=== PATIENT | female | born 1995 | race Caucasian/White ===

== ENCOUNTER → 2018-02-16 | Outpatient (CLI) | payer BC, OTHER | END | disposition home or self-care (01) | LOC: LABWHC1 16:28 | PROVIDERS: ATTEND Obstetrics & Gynecology | DX: N92.6 Irregular menstruation, unspecified (principal) | CPT/HCPCS: 36415; 84702 ==

== ENCOUNTER 2018-06-15 16:07 | Emergency (ER) | payer BC, OTHER ==
[2018-06-15 16:57] VITALS: BP 104/64; PULSE 76; RESP 18; TEMP 98.5
--- NOTE | 2018-06-15 17:12 | ED ---
ENT HPI - General Chief complaint: ENT Stated complaint: ear pain Time Seen by Provider: 06/15/18 16:58 Source: patient, RN notes reviewed Mode of arrival: ambulatory Limitations: no limitations - History of Present Illness Initial comments: This is a 23yo female with hx of multiple caries and poor dentition with multiple extractions who presents today for CC of right sided tooth pain x4 days. Pt states that she has had a dental carry in tooth #3 and has been experiencing sensitivity to hot and cold foods for a few months. However for the past 3-4 days she has been experiencing pain in the tooth that radiates to up towards the right hear, however she denies ear pain. Pt has had difficulty sleeping due to the pain and thought she better present to the emergency department. Pt had not tried any medication for the pain. Pt denies fever, chills, facial swelling, difficulty swallowing or breathing, or rashes. Remainder ROS (-). - Related Data Previous Rx's Medication Instructions Recorded Ibuprofen [Motrin] 800 mg PO Q8H PRN 7 Days #21 tab 06/15/18 Penicillin V Potassium [Pen Vee K] 500 mg PO QID 7 Days #28 tablet 06/15/18 Allergies Allergy/AdvReac Type Severity Reaction Status Date / Time codeine Allergy Unknown Verified 06/15/18 16:57 Childhood Review of Systems ROS Statement: Those systems with pertinent positive or pertinent negative responses have been documented in the HPI. ROS Other: All systems not noted in ROS Statement are negative. Constitutional: Denies: fever, weakness, night sweats Eyes: Denies: eye pain, vision change ENT: Reports: dental pain. Denies: ear pain, throat pain, hearing loss Respiratory: Denies: cough, dyspnea, wheezes, hemoptysis Cardiovascular: Denies: chest pain, palpitations, orthopnea Endocrine: Denies: fatigue Gastrointestinal: Denies: abdominal pain, nausea, vomiting, diarrhea, constipation Genitourinary: Denies: urgency, dysuria, frequency Musculoskeletal: Denies: back pain (no neck pain, or stiffness) Skin: Denies: rash, lesions Neurological: Denies: headache, weakness, numbness, paresthesias, confusion, abnormal gait, vertigo Past Medical History Past Medical History: No Reported History History of Any Multi-Drug Resistant Organisms: None Reported Past Surgical History: Appendectomy Past Psychological History: No Psychological Hx Reported Smoking Status: Current every day smoker Past Alcohol Use History: Occasional Past Drug Use History: None Reported General Exam Limitations: no limitations General appearance: alert, in no apparent distress Head exam: Present: atraumatic, normal inspection Eye exam: Present: normal appearance, PERRL, EOMI ENT exam: Present: mucous membranes moist Expanded Ear exam: Present: normal external inspection, other (TM in non erythematous, cone and light and mallelous present, no drainage, effusion or perfation noted b /l. EAC WNL b/l) Mouth exam: Present: normal external inspection, tongue normal, other (No masses below tongue, or facial swelling). Absent: drooling, trismus Teeth exam: Present: dental caries (of multiple teeth), dental tenderness # (3, tenderness to percussion with no palpable abscess). Absent: fractured tooth #, gingival enlargement Throat exam: normal inspection Neck exam: Present: normal inspection, full ROM (no nuchal rigidity or stiffness ). Absent: tenderness, lymphadenopathy Respiratory exam: Present: normal lung sounds bilaterally. Absent: respiratory distress, wheezes, rales, rhonchi, stridor Cardiovascular Exam: Present: regular rate, normal rhythm, normal heart sounds Neurological exam: Present: alert, oriented X3, CN II-XII intact (grossly), normal gait Psychiatric exam: Present: normal affect, normal mood Skin exam: Present: warm, dry, intact. Absent: rash, diaphoretic Course Vital Signs 06/15/18 16:54 Temperature 98.5 F Pulse Rate 76 Respiratory 18 Rate Blood Pressure 104/64 O2 Sat by Pulse 99 Oximetry Medical Decision Making - Medical Decision Making 23 yo female with CC of dental pain in tooth #3, no facial swelling or palpable abscess. No masses below tongue. No concern for Ludwigs angina or systemic spread of infection at this time. There is pain to percussion of tooth #3 concerning for periapical abscess. Pt was given RX for Pen VK, ibuprofen 800 for pain and oral surgery f/u for tooth extraction. Case discussed with Dr. Agarwal in detail. Pt agreed with plan and was discharged in stable condition. Disposition Clinical Impression: Pain, dental Disposition: HOME SELF-CARE Condition: Good Instructions: Dental Abscess (ED) Additional Instructions: Please take medication as discussed. Please follow-up with your dentist or oral surgery in 1-2 days. Please return to the emergency department for new or worsening symptoms as discussed. Prescriptions: Ibuprofen [Motrin] 800 mg PO Q8H PRN 7 Days #21 tab PRN Reason: Pain Penicillin V Potassium [Pen Vee K] 500 mg PO QID 7 Days #28 tablet Is patient prescribed a controlled substance at d/c from ED?: No Referrals: Tadeo Benjamin DO [Primary Care Provider] - 1-2 days Tres Mireles DDS [STAFF PHYSICIAN] - 1-2 days Time of Disposition: 17:11
== END 2018-06-15 17:28 | disposition home or self-care (01) ==
LOC: EC 16:07
DX: K08.89 Other specified disorders of teeth and supporting structures (principal); K02.9 Dental caries, unspecified; F17.200 Nicotine dependence, unspecified, uncomplicated; Z88.5 Allergy status to narcotic agent
CPT/HCPCS: 99282

== ENCOUNTER 2018-11-29 12:19 | Emergency (ER) | payer BC, OTHER ==
[2018-11-29 12:30] VITALS: BP 126/83; PULSE 88; RESP 18; TEMP 98.1
--- NOTE | 2018-11-29 12:43 | ED ---
Skin/Abscess/FB HPI - General Chief complaint: Skin/Abscess/Foreign Body Stated complaint: RASH ON BOTH ARMS Time Seen by Provider: 11/29/18 12:33 Source: patient, RN notes reviewed Mode of arrival: ambulatory Limitations: no limitations - History of Present Illness Initial comments: This 23-year-old female sent emergency Department chief complaint of bilateral arm rash. Patient states started a few days ago and is very itchy. Patient states that she has tried Benadryl, calamine lotion and cortisone. Patient believes that she came in contact with something is causing the rash. Denies any new products. Patient denies any difficulty breathing, swallowing. Patient had no recent URI symptoms no fever, sore throat. Patient states the rash has not spread any other place at this time. - Related Data Home Medications Medication Instructions Recorded Confirmed diphenhydrAMINE [Benadryl] 50 mg PO Q8H PRN 11/29/18 11/29/18 Previous Rx's Medication Instructions Recorded predniSONE 50 mg PO DAILY #5 tab 11/29/18 Allergies Allergy/AdvReac Type Severity Reaction Status Date / Time codeine Allergy Unknown Verified 11/29/18 12:29 Childhood Review of Systems ROS Statement: Those systems with pertinent positive or pertinent negative responses have been documented in the HPI. ROS Other: All systems not noted in ROS Statement are negative. Past Medical History Past Medical History: No Reported History History of Any Multi-Drug Resistant Organisms: None Reported Past Surgical History: Appendectomy Past Psychological History: No Psychological Hx Reported Smoking Status: Current every day smoker Past Alcohol Use History: Occasional Past Drug Use History: None Reported General Exam Limitations: no limitations General appearance: alert, in no apparent distress Head exam: Present: atraumatic, normocephalic, normal inspection Eye exam: Present: normal appearance, PERRL, EOMI. Absent: scleral icterus, conjunctival injection, periorbital swelling ENT exam: Present: normal exam, normal oropharynx, mucous membranes moist Neck exam: Present: normal inspection. Absent: tenderness, meningismus, lymphadenopathy Respiratory exam: Present: normal lung sounds bilaterally. Absent: respiratory distress, wheezes, rales, rhonchi, stridor Cardiovascular Exam: Present: regular rate, normal rhythm, normal heart sounds. Absent: systolic murmur, diastolic murmur, rubs, gallop, clicks Skin exam: Present: warm, dry, intact, normal color, rash (Bilateral upper extremities there is a fine papular macular rash slight erythema, excoriations noted) Course Vital Signs 11/29/18 12:26 Temperature 98.1 F Pulse Rate 88 Respiratory 18 Rate Blood Pressure 126/83 O2 Sat by Pulse 99 Oximetry Medical Decision Making - Medical Decision Making 23-year-old female presented for rash. Patient appears to have contact dermatitis. The rash is located on the exposed areas of her arms. There is no other areas the rash. Patient was treated with oral steroids and Benadryl. Patient may use [id number] Caladryl. Return parameters were discussed. Disposition Clinical Impression: Contact dermatitis Disposition: HOME SELF-CARE Condition: Stable Instructions: Contact Dermatitis (ED) Additional Instructions: Continue Benadryl [id number] as directed and Caladryl lotion. Please return to the Emergency Department if symptoms worsen or any other concerns. Prescriptions: predniSONE 50 mg PO DAILY #5 tab Is patient prescribed a controlled substance at d/c from ED?: No Referrals: Tadeo Benjamin DO [Primary Care Provider] - 1-2 days Time of Disposition: 12:43
== END 2018-11-29 13:00 | disposition home or self-care (01) ==
LOC: EC 12:19
DX: L25.9 Unspecified contact dermatitis, unspecified cause (principal); F17.200 Nicotine dependence, unspecified, uncomplicated; Z88.5 Allergy status to narcotic agent
CPT/HCPCS: 99282

== ENCOUNTER 2019-07-31 04:59 | Emergency (ER) | payer BC, OTHER ==
[2019-07-31 05:07] VITALS: BP 120/63; PULSE 90; RESP 20; TEMP 97.8
--- NOTE | 2019-07-31 05:17 | ED ---
Female Urogenital HPI - General Chief complaint: Vaginal Bleeding Stated complaint: 13 Wks Preg, Cramping Time Seen by Provider: 07/31/19 05:16 Source: patient Mode of arrival: ambulatory Limitations: no limitations - History of Present Illness Initial comments: Jessica is a female currently 13 weeks with a single intrauterine confirmed on outpatient ultrasound. Patient presents the ER today for evaluation of mild abdominal cramping and noticed some spotting today. Patient reports that she was last sexually active about 2 weeks ago, she did see her OB earlier this week and had a bedside ultrasound and was able to hear the baby's heartbeat. Patient reports that she is scheduled to have an appointment at the end of this month for gender identification. Patient reports that during the night she had some cramping that woke her couple times from sleep, she got up to use restroom and noted some dark spotting when she wiped herself and decided to come the ER for evaluation. Patient has no dysuria or hematuria. No concern for sexually transmitted infections and has been tested already in this and is negative. - Related Data Home Medications Medication Instructions Recorded Confirmed diphenhydrAMINE [Benadryl] 50 mg PO Q8H PRN 11/29/18 11/29/18 Previous Rx's Medication Instructions Recorded predniSONE 50 mg PO DAILY #5 tab 11/29/18 Allergies Allergy/AdvReac Type Severity Reaction Status Date / Time codeine Allergy Unknown Verified 07/31/19 05:07 Childhood Review of Systems ROS Statement: Those systems with pertinent positive or pertinent negative responses have been documented in the HPI. ROS Other: All systems not noted in ROS Statement are negative. Past Medical History Past Medical History: No Reported History History of Any Multi-Drug Resistant Organisms: None Reported Past Surgical History: Appendectomy Past Psychological History: No Psychological Hx Reported Smoking Status: Current every day smoker Past Alcohol Use History: Occasional Past Drug Use History: None Reported General Exam - General Exam Comments Initial Comments: Physical Exam GENERAL: Patient is well-developed and well-nourished. Patient is nontoxic and well- hydrated and is in no distress. HENT: Normocephalic, Atraumatic. EYES: PERRL, EOMI PULMONARY: Unlabored respirations. No audible rales rhonchi or wheezing was noted. CARDIOVASCULAR: There is a regular rate and rhythm without any murmurs gallops or rubs. ABDOMEN: Soft and nontender with normal bowel sounds. SKIN: Skin is clear with no lesions or rashes and otherwise unremarkable. : Normal external genitalia Cervical os is closed Scant dark blood in vaginal vault, NEUROLOGIC: Patient is alert and oriented x3. Moving all extremities spontaneously MUSCULOSKELETAL: Normal extremities with adequate strength and full range of motion. No lower extremity swelling or edema. No calf tenderness. PSYCHIATRIC: Normal psychiatric evaluation. Limitations: no limitations Course Vital Signs 07/31/19 05:05 Temperature 97.8 F Pulse Rate 90 Respiratory 20 Rate Blood Pressure 120/63 O2 Sat by Pulse 100 Oximetry Medical Decision Making - Medical Decision Making Patient was seen and evaluated, history is obtained from the patient Physical exam is unremarkable Bedside ultrasound was performed. Patient has a very active fetus with a heart rate in the 150s. A sign pelvic exam reveals some scant dark blood, no cervical motion tenderness, no discharge She reports that she is Rh+ and did not have a BM in her previous Supportive care, pelvic rest were discussed with the patient. patient is scheduled to see her OB in the next 2 weeks but I advised her to call for follow-up appointment sooner. All questions pertaining care were answered return parameters were discussed patient was discharged home in stable condition. - Lab Data Lab Results 07/31/19 Range/Units 05:26 Urine Color Yellow Urine Appearance Cloudy H (Clear) Urine pH 6.0 (5.0-8.0) Ur Specific [place] 1.016 (1.001-1.035) Urine Protein Negative (Negative) Urine Glucose (UA) Negative (Negative) Urine Ketones Negative (Negative) Urine Blood Moderate H (Negative) Urine Nitrite Negative (Negative) Urine Bilirubin Negative (Negative) Urine Urobilinogen <2.0 (<2.0) mg/dL Ur Leukocyte Esterase Large H (Negative) Urine RBC 2 (0-5) /hpf Urine WBC 10 H (0-5) /hpf Ur Squamous Epith Cells 11 H (0-4) /hpf Urine Bacteria Many H (None) /hpf Urine Mucus Occasional H (None) /hpf Disposition Clinical Impression: Vaginal bleeding Disposition: HOME SELF-CARE Condition: Stable Additional Instructions: Maintain pelvic rest until you follow 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
[2019-07-31 05:40] LABS: Appearance,Urine Cloudy (Clear); Bacteria,Urine Many /hpf; Bilirubin,Urine Negative (Negative); Blood,Urine Moderate (Negative); Color,Urine Yellow; Glucose,Urine (UA) Negative (Negative); Ketones,Urine Negative (Negative); Leukocyte Esterase,Urine Large (Negative); Mucus,Urine Occasional /hpf; Nitrite,Urine Negative (Negative); Protein,Urine Negative (Negative); RBC,Urine 2 /hpf (0-5); Specific Gravity,Urine 1.016 (1.001-1.035); Squamous Epithelial Cell,Urine 11 /hpf (0-4); Urobilinogen,Urine <2.0 mg/dL (<2.0); WBC,Urine 10 /hpf (0-5)
== END 2019-07-31 05:54 | disposition home or self-care (01) ==
LOC: EC 04:59
DX: O20.9 Hemorrhage in early pregnancy, unspecified (principal); O99.331 Smoking (tobacco) complicating pregnancy, first trimester; F17.200 Nicotine dependence, unspecified, uncomplicated; Z3A.13 13 weeks gestation of pregnancy; Z88.5 Allergy status to narcotic agent
CPT/HCPCS: 81001; 87086; 99283

== ENCOUNTER 2019-08-15 19:22 | Emergency (ER) | payer BC, OTHER ==
[2019-08-15 21:10] LABS: Appearance,Urine Cloudy (Clear); Bacteria,Urine Occasional /hpf; Bilirubin,Urine Negative (Negative); Blood,Urine Moderate (Negative); Color,Urine Yellow; Glucose,Urine (UA) Negative (Negative); Ketones,Urine Negative (Negative); Leukocyte Esterase,Urine Moderate (Negative); Mucus,Urine Occasional /hpf; Nitrite,Urine Negative (Negative); PH, Urine 5.5 (5.0-8.0); Protein,Urine Trace (Negative); RBC,Urine 2 /hpf (0-5); Specific Gravity,Urine 1.025 (1.001-1.035); Squamous Epithelial Cell,Urine 12 /hpf (0-4); Urobilinogen,Urine <2.0 mg/dL (<2.0); WBC,Urine 9 /hpf (0-5)
--- NOTE | 2019-08-15 21:37 | US ---
EXAMINATION TYPE: US OB >= 14 wk fetus DATE OF EXAM: 08/15/2019 COMPARISON: None CLINICAL HISTORY: cramping, spotting TECHNIQUE: Transabdominal (TA) GESTATIONAL AGE / DATING Physician Established: (15 weeks/6 days) EDC: 01/31/2020 Dates by Current Scan: (16 weeks/2 days) EDC: 01/28/2020 Beta HCG (if available): Not available at this time SURVEY IUP: Single PLACENTA: Posterior PREVIA: No Previa FRED: 10.4 cm Normal CERVICAL LENGTH (transabdominal: norm > 3.0cm): 3.2 cm BIOMETRY PRESENTATION: Vertex BPD: 3.2 cm 16 weeks / 0 days HC: 12.4 cm 16 weeks / 1 days AC: 11.0 cm 16 weeks / 6 days FL: 1.9 cm 15 weeks / 5 days ESTIMATED WEIGHT IN GRAMS: 151.2 grams ESTIMATED WEIGHT IN LBS/OZ: 0 lbs. 5 oz. WEIGHT PERCENTAGE BASED ON ESTABLISHED DATES: 70.4% HC/AC: 1.1 Normal FL/AC: 17.6 HEART RATE: 152 bpm RHYTHM: Normal Single live IUP measuring 16 weeks 2 days IMPRESSION: Ultrasound gestational age is 16 weeks and 2 days. No complicating process seen.
[2019-08-15] MEDS ORDERED: CEPHALEXIN 500MG STARTER PACK 4 CAP BTL PO STA (22:27)
--- NOTE | 2019-08-15 22:27 | ED ---
Female Urogenital HPI - General Chief complaint: Vaginal Bleeding Stated complaint: 16 wks ,spotting Time Seen by Provider: 08/15/19 19:59 Source: family Mode of arrival: ambulatory Limitations: no limitations - History of Present Illness Initial comments: 24-year-old female patient presents to the emergency department today for evaluation of lower abdominal pain and vaginal bleeding. Patient is 16 weeks currently. She is . Patient states that she did have similar symptoms about a week ago. States she had a normal ultrasound. Patient states that symptoms started again this morning. States she has been passing very light brown blood per vagina. States that she has had lower abdominal cramping especially over the left pelvic region. She denies any back pain, fever, or chills. Denies any hematuria, dysuria, urinary frequency, urinary urgency. She denies any injuries to the abdomen. She is unsure what her blood type is. States she did not receive RhoGAM with her first . Patient denies any recent rash, shortness breath, chest pain, nausea, vomiting, diarrhea, constipation, numbness, tingling, dizziness, weakness, headache, visual changes, or any other complaints. - Related Data Home Medications Medication Instructions Recorded Confirmed diphenhydrAMINE [Benadryl] 50 mg PO Q8H PRN 11/29/18 11/29/18 Previous Rx's Medication Instructions Recorded predniSONE 50 mg PO DAILY #5 tab 11/29/18 Cephalexin [Keflex] 500 mg PO Q6H #28 cap 08/15/19 Allergies Allergy/AdvReac Type Severity Reaction Status Date / Time codeine Allergy Unknown Verified 08/15/19 19:51 Childhood Review of Systems ROS Statement: Those systems with pertinent positive or pertinent negative responses have been documented in the HPI. ROS Other: All systems not noted in ROS Statement are negative. Past Medical History Past Medical History: No Reported History History of Any Multi-Drug Resistant Organisms: None Reported Past Surgical History: Appendectomy Past Psychological History: No Psychological Hx Reported Smoking Status: Current every day smoker Past Alcohol Use History: Occasional Past Drug Use History: None Reported General Exam Limitations: no limitations General appearance: alert, in no apparent distress, other (This is a well- developed, well-nourished adult female patient in no acute distress. Vital signs upon presentation are temperature 98.4F, pulse 100, respirations 20, blood pressure 123/66, pulse ox 97% on room air.) Eye exam: Present: normal appearance, PERRL, EOMI. Absent: scleral icterus, conjunctival injection, periorbital swelling ENT exam: Present: normal exam, normal oropharynx, mucous membranes moist Respiratory exam: Present: normal lung sounds bilaterally. Absent: respiratory distress, wheezes, rales, rhonchi, stridor Cardiovascular Exam: Present: regular rate, normal rhythm, normal heart sounds. Absent: systolic murmur, diastolic murmur, rubs, gallop, clicks GI/Abdominal exam: Present: soft, normal bowel sounds. Absent: distended, tenderness, guarding, rebound, rigid Neurological exam: Present: alert, oriented X3, CN II-XII intact Psychiatric exam: Present: normal affect, normal mood Skin exam: Present: warm, dry, intact, normal color. Absent: rash Course Vital Signs 08/15/19 08/15/19 19:48 23:10 Temperature 98.4 F 98.5 F Pulse Rate 100 77 Respiratory 20 16 Rate Blood Pressure 123/66 121/82 O2 Sat by Pulse 97 99 Oximetry Medical Decision Making - Medical Decision Making 24-year-old female patient presents to the emergency department today for evaluation of lower abdominal cramping and vaginal bleeding. Physical examination does reveal some mild lower abdominal discomfort. Urinalysis did show presence of white blood cells and bacteria. ABO/Rh was AB+. Ultrasound showed single live intrauterine gestation measuring 16 weeks beginning process seen. I did discuss findings and results with the patient. She'll be discharged to follow-up with the fabric worker leader for recheck in 1-2 days. She was started on antibiotics for bacteriuria. Return parameters were discussed in detail. She verbalizes understanding and agrees with this plan. - Lab Data Lab Results 08/15/19 08/15/19 Range/Units 20:56 20:56 Urine Color Yellow Urine Appearance Cloudy H (Clear) Urine pH 5.5 (5.0-8.0) Ur Specific [place] 1.025 (1.001-1.035) Urine Protein Trace H (Negative) Urine Glucose (UA) Negative (Negative) Urine Ketones Negative (Negative) Urine Blood Moderate H (Negative) Urine Nitrite Negative (Negative) Urine Bilirubin Negative (Negative) Urine Urobilinogen <2.0 (<2.0) mg/dL Ur Leukocyte Esterase Moderate H (Negative) Urine RBC 2 (0-5) /hpf Urine WBC 9 H (0-5) /hpf Ur Squamous Epith Cells 12 H (0-4) /hpf Urine Bacteria Occasional H (None) /hpf Urine Mucus Occasional H (None) /hpf Blood Type AB Positive Blood Type Recheck AB Pos Bld Type Recheck Status No - Radiology Data Radiology results: report reviewed Ultrasound of the fetus was obtained. Report was reviewed in its entirety. Impression by Dr. Amador shows ultrasound gestational age is 16 weeks and 2 days. getting process seen. Heart rate is 152. Disposition Clinical Impression: Vaginal bleeding during , Abdominal pain during Disposition: HOME SELF-CARE Condition: Good Instructions (If sedation given, give patient instructions): Abdominal Pain in (ED), Urinary Tract Infection in (ED) Additional Instructions: Complete antibiotic prescription in full. Follow up with OBGYN for recheck as soon as possible. Return to the emergency department for any new, worsening, or concerning symptoms. Prescriptions: Cephalexin [Keflex] 500 mg PO Q6H #28 cap Is patient prescribed a controlled substance at d/c from ED?: No Referrals: Tadeo Benjamin DO [Primary Care Provider] - 1-2 days Zayra Miller DO [Doctor of Osteopathic Medicine] - 1-2 days Time of Disposition: 22:27
[2019-08-15 23:16] VITALS: BP 121/82; PULSE 77; RESP 16; TEMP 98.5
== END 2019-08-15 23:10 | disposition home or self-care (01) ==
LOC: EC 19:22
DX: O20.9 Hemorrhage in early pregnancy, unspecified (principal); O26.892 Other specified pregnancy related conditions, second trimester; R10.30 Lower abdominal pain, unspecified; O99.332 Smoking (tobacco) complicating pregnancy, second trimester; F17.200 Nicotine dependence, unspecified, uncomplicated; Z3A.16 16 weeks gestation of pregnancy; Z88.5 Allergy status to narcotic agent
CPT/HCPCS: 76805; 81001; 86900; 86901; 99284

== ENCOUNTER 2019-11-15 11:17 | Outpatient (CLI) | payer BC, OTHER ==
[2019-11-15 12:24] VITALS: BP 121/69; PULSE 108; RESP 16; TEMP 97.1
--- NOTE | 2019-11-17 00:31 | P.MSEPDOC ---
Presenting Problems - Arrival Data Date of Arrival on Unit: 11/15/19 Time of Arrival on Unit: 11:17 Mode of Transport: Ambulatory - Complaint OB-Reason for Admission/Chief Complaint: Decreased Movement, Pain Medical History - Information : 2 Para: 1 Term: 1 : 0 Abortions: Spontaneous or Elective: 0 Number of Living Children: 1 - Gestational Age Gestational Age by ABRAM (wks/days): 29 Weeks and 0 Days - History Complications: Smoker Review of Systems - Review of Systems Constitutional: No problems Breast: No problems ENT: No problems Cardiovascular: No problems Respiratory: No problems Gastrointestinal: No problems Genitourinary: No problems Musculoskeletal: No problems Neurological: No problems Skin: No problems Vital Signs - Temperature Temperature: 97.1 F Temperature Source: Temporal Artery Scan - Pulse Right Sitting Brachial Pulse Rate: 108 Pulse Assessment Method: Automatic Cuff - Respirations Respiratory Rate: 16 Oxygen Delivery Method: Room Air O2 Sat by Pulse Oximetry: 99 - Blood Pressure Right Arm Sitting Blood Pressure: 121/69 Blood Pressure Mean: 86 Blood Pressure Source: Automatic Cuff Medical Screen Scoring (Pre) - Cervical Exam Dilation: Exam Deferred Effacement: Exam Deferred Membranes: Intact - Uterine Contractions Frequency: N/A Duration: N/A Intensity: N/A - Maternal Vital Signs Maternal Temperature: N/A Maternal Blood Pressure: N/A Signs of Preeclampsia: N/A - Maternal Trauma Maternal Trauma: N/A - Assessment - Baby A Baseline FHR: 135 Heart Rate - NICHD Category: Category I (Normal) = 0 NST: Reactive Position: N/A Station: N/A - Total Score - Baby A Total Score - Baby A: 0 - Total Score - Baby B Total Score - Baby B: 0 - Total Score - Baby C Total Score - Baby C: 0 - Level of Risk - Baby A Level of Risk - Baby A: Low (0-5) - Level of Risk - Baby B Level of Risk - Baby B: Low (0-5) - Level of Risk - Baby C Level of Risk - Baby C: Low (0-5) Physician Notification (Pre) - Physician Notified Physician Notified Date: 11/15/19 Physician Notified Time: 12:12 New Order Received: Yes - Notification Comment Comment: Aditya ricardo\Dr. Miller, advsd 11/23, c/o pulled muscle on top of abdomen after lifting pt at work and decreased movement since 11/14. Palpable area approx 1in in diameter 3 fingerbreaths above umbilicus, tender to touch. Reactive NST, pt feeling good movement. Pt needs note for lifting restrictions at work. Pt to pick note up from [facility], follow up as scheduled 11/19. Disposition - Disposition OB Disposition: Discharge to home, Written follow up instructions reviewed Discharge Date: 11/15/19 Discharge Time: 12:20 I agree with the RN Medical Screening Exam: Yes Risk & Benefit of care provided described in d/c instruction: Yes Diagnosis: DECREASED MOVEMENTS, THIRD TRIMESTER, FETUS 1
== END 2019-11-15 12:20 | disposition home or self-care (01) ==
LOC: FBPOP 11:17
PROVIDERS: ATTEND Obstetrics & Gynecology
DX: O36.8131 Decreased fetal movements, third trimester, fetus 1 (principal); O99.333 Smoking (tobacco) complicating pregnancy, third trimester; Z3A.29 29 weeks gestation of pregnancy
CPT/HCPCS: 59025; 99213

== ENCOUNTER 2020-01-07 16:02 | Outpatient (CLI) | payer BC, OTHER ==
[2020-01-07 16:34] VITALS: BP 132/74; PULSE 115; RESP 17; TEMP 97.5
== END 2020-01-07 17:00 | disposition home or self-care (01) ==
LOC: FBPOP 16:02
PROVIDERS: ATTEND Obstetrics & Gynecology
DX: O47.03 False labor before 37 completed weeks of gestation, third trimester (principal); O99.333 Smoking (tobacco) complicating pregnancy, third trimester; Z3A.36 36 weeks gestation of pregnancy
CPT/HCPCS: 59025; 84112; 99213

== ENCOUNTER 2020-01-24 05:59 | Inpatient (IN) | payer BC, OTHER ==
[2020-01-24] MEDS ORDERED: METHYLERGONOVINE 0.2 MG/ML 1 ML AMP IM PRN (06:17)
[2020-01-24] MEDS ORDERED: LIDOCAINE 0.5% (PF) 5 MG/ML (50 ML SDV) SQ PRN (06:17)
[2020-01-24] MEDS ORDERED: CARBOPROST TROMETHAMINE 250 MCG/ML 1 ML AMP IM PRN (06:17)
[2020-01-24] MEDS ORDERED: OXYTOCIN 10 UNIT/ML 1 ML VIAL IM PRN (06:17)
[2020-01-24] MEDS ORDERED: TERBUTALINE 1 MG/ML VIAL SQ PRN (06:17)
[2020-01-24] MEDS: LACTATED RINGERS 1,000 ML IV SCH ×2 (06:21→09:08)
[2020-01-24] MEDS ORDERED: OXYTOCIN 30 UNITS/500 ML NS 30 UNIT in SALINE 1 500ML.BAG IV SCH (06:30)
[2020-01-24 06:33] LABS: Basophils # (A) 0.1 k/uL (0-0.2); Basophils % (A) 0 %; Eosinophils # (A) 0.3 k/uL (0-0.7); Eosinophils % (A) 2 %; HCT 32.6 % (34.0-46.0); HGB 10.9 gm/dL (11.4-16.0); Lymphocytes # (A) 3.7 k/uL (1.0-4.8); Lymphocytes % (A) 27 %; MCH 30.3 pg (25.0-35.0); MCHC 33.4 g/dL (31.0-37.0); MCV 90.6 fL (80.0-100.0); Mean Platelet Volume 7.9; Monocytes % (A) 8 %; Neutrophils # (A) 8.1 k/uL (1.3-7.7); Neutrophils % (A) 59 %; Platelet Count 414 k/uL (150-450); WBC 13.6 k/uL (3.8-10.6)
--- NOTE | 2020-01-24 08:09 | P.HPOB ---
History of Present Illness H&P Date: 01/24/20 Chief Complaint: INduction of labor 24 year old presents at 39 weeks for induction of labor. Her cervix is 4/80/-1 and she is meeta every 2-4 minutes. heart tones 140 with moderate variability and reactive. Review of Systems All systems: negative Constitutional: Denies chills, Denies fever Eyes: denies blurred vision, denies pain Ears, nose, mouth and throat: Denies headache, Denies sore throat Cardiovascular: Denies chest pain, Denies shortness of breath Respiratory: Denies cough Gastrointestinal: Denies abdominal pain, Denies diarrhea, Denies nausea, Denies vomiting Genitourinary: Denies dysuria, Denies hematuria Musculoskeletal: Denies myalgias Integumentary: Denies pruritus, Denies rash Neurological: Denies numbness, Denies weakness Psychiatric: Denies anxiety, Denies depression Endocrine: Denies fatigue, Denies weight change Past Medical History Past Medical History: No Reported History History of Any Multi-Drug Resistant Organisms: None Reported Past Surgical History: Appendectomy Past Anesthesia/Blood Transfusion Reactions: No Reported Reaction Past Psychological History: No Psychological Hx Reported Smoking Status: Current every day smoker Past Alcohol Use History: Occasional Past Drug Use History: None Reported - Past Family History Father Additional Family Medical History / Comment(s): kidney disease Medications and Allergies Home Medications Medication Instructions Recorded Confirmed Type No Known Home Medications 01/24/20 01/24/20 History Allergies Allergy/AdvReac Type Severity Reaction Status Date / Time codeine Allergy Unknown Verified 01/24/20 06:17 Childhood Exam Osteopathic Statement: *. No significant issues noted on an osteopathic structural exam other than those noted in the History and Physical/Consult. Vital Signs Temp Pulse Resp BP Pulse Ox 01/24/20 06:23 97.2 F L 130 H 18 137/63 99 Intake and Output 01/23/20 01/24/20 01/24/20 22:59 06:59 14:59 Other: Weight 69.853 kg HEart: RRR Lungs: CTAB Abdomen: gravid, soft Extremeties: neg paras's Results Result Diagrams: 01/24/20 06:21 Abnormal Lab Results - Last 24 Hours (Table) 01/24/20 Range/Units 06:21 WBC 13.6 H (3.8-10.6) k/uL RBC 3.60 L (3.80-5.40) m/uL Hgb 10.9 L (11.4-16.0) gm/dL Hct 32.6 L (34.0-46.0) % Neutrophils # 8.1 H (1.3-7.7) k/uL Assessment and Plan (1) Normal labor Current Visit: Yes Status: Acute Code(s): O80 - ENCOUNTER FOR FULL-TERM UNCOMPLICATED DELIVERY; Z37.9 - OUTCOME OF DELIVERY, UNSPECIFIED SNOMED Code(s): 27509321 Plan: 1. induction of labor with amniotomy and pitocin 2. anticipate normal vaginal delivery
[2020-01-24] MEDS ORDERED: ROPIVACAINE 100 MG, fentaNYL (PF) 200 MCG in SODIUM CHLORIDE 0.9% 76 ML EPIDURAL ONE (09:02)
[2020-01-24] MEDS ORDERED: diphenhydrAMINE 25 MG CAP PO PRN (12:58)
[2020-01-24] MEDS ORDERED: IBUPROFEN 600 MG TAB PO PRN (12:58)
[2020-01-24] MEDS ORDERED: WITCH HAZEL 1 EACH MED..PAD TOPICAL PRN (12:58)
[2020-01-24] MEDS ORDERED: ACETAMINOPHEN TAB 325 MG TAB PO PRN (12:58)
[2020-01-24] MEDS ORDERED: BENZOCAINE/MENTHOL SPRAY 1 GM/SPRAY AEROSOL TOPICAL PRN (12:58)
[2020-01-24] MEDS ORDERED: LANOLIN CREAM 5 GM TUBE TOPICAL PRN (12:58)
[2020-01-24] MEDS ORDERED: diphenhydrAMINE 50 MG/ML 1 ML VIAL IVP PRN ×2 (12:58)
[2020-01-24] MEDS ORDERED: diphenhydrAMINE 50 MG CAP PO PRN (12:58)
[2020-01-24] MEDS ORDERED: SIMETHICONE 80 MG CHEWABLE PO PRN (12:58)
[2020-01-24] MEDS ORDERED: HYDROCORTISONE 2.5% RECTAL CREAM 30 GM TUBE RECTAL PRN (12:58)
[2020-01-24] MEDS ORDERED: ZOLPIDEM 5 MG TAB PO PRN (12:58)
[2020-01-24] MEDS ORDERED: OXYTOCIN 20 UNITS/1000 ML NS 1,000 ML IV SCH (13:00)
[2020-01-24 20:31] VITALS: RESP 16
[2020-01-24] MEDS: SENNOSIDES-DOCUSATE SODIUM 1 EACH TAB PO SCH (23:51)
--- NOTE | 2020-01-25 06:56 | P.PROBDLV ---
Vaginal Delivery Note - . Vaginal Delivery Note: 24-year-old presents at 39 weeks for induction of labor. Her cervix was 4 cm dilated, 80% effaced, -1 station. She is meeta every 2-4 minutes. heart tones 140 with moderate variability and reactive. Pitocin was started. Amniotomy was performed at 7:57 AM and clear fluid noted. When she was uncomfortable she did get an epidural. Her cervix was completely dilated at 11:20 AM. She pushed, delivered a viable female infant over intact perineum u nder epidural anesthesia at 11:41 AM. Head delivered OA, nuchal cord 1 easily reduced, anterior shoulder delivered gentle downward guidance followed by posterior shoulder and rest of body. Nose and mouth bulb suctioned, cord clamped and cut, placed on mother's abdomen. Apgars 9, 9, weight 7 pounds 9.5 ounces. Placenta delivered spontaneously, intact with three-vessel cord at 11:43 AM. Vagina, cervix, perineum inspected. First-degree midline laceration was repaired with 3-0 Vicryl. Estimated blood loss 200 mL. Mother and baby in stable condition.
[2020-01-25 07:15] LABS: Basophils # (A) 0.1 k/uL (0-0.2); Basophils % (A) 0 %; Eosinophils # (A) 0.5 k/uL (0-0.7); Eosinophils % (A) 3 %; HCT 30.5 % (34.0-46.0); HGB 10.2 gm/dL (11.4-16.0); Lymphocytes # (A) 3.4 k/uL (1.0-4.8); Lymphocytes % (A) 20 %; MCH 30.1 pg (25.0-35.0); MCHC 33.3 g/dL (31.0-37.0); MCV 90.5 fL (80.0-100.0); Mean Platelet Volume 7.5; Monocytes # (A) 1.3 k/uL (0-1.0); Monocytes % (A) 8 %; Neutrophils # (A) 11.5 k/uL (1.3-7.7); Neutrophils % (A) 67 %; Platelet Count 380 k/uL (150-450); RBC 3.37 m/uL (3.80-5.40); RDW 13.1 % (11.5-15.5); WBC 17.1 k/uL (3.8-10.6)
--- NOTE | 2020-01-25 08:44 | P.DS ---
Providers Date of admission: 01/24/20 05:59 Expected date of discharge: 01/25/20 Attending physician: Zayra Miller Primary care physician: Stated None - Discharge Diagnosis(es) (1) Normal labor Current Visit: Yes Status: Resolved (2) Normal vaginal delivery Current Visit: Yes Status: Acute Hospital Course: Patient presented for induction of labor. She underwent a normal vaginal delivery. Her course was uncomplicated. She'll be discharged home day #1 in stable condition to follow-up with me in 6 weeks. Plan - Discharge Summary New Discharge Prescriptions: New Ibuprofen [Motrin] 600 mg PO Q6HR PRN #30 tab PRN Reason: Mild Pain Or Fever >= 100.5 Discharge Medication List Ibuprofen [Motrin] 600 mg PO Q6HR PRN #30 tab 01/25/20 [Rx] Follow up Appointment(s)/Referral(s): Zayra Miller DO [Doctor of Osteopathic Medicine] - 6 Weeks Discharge Disposition: HOME SELF-CARE
[2020-01-25] MEDS: SENNOSIDES-DOCUSATE SODIUM 1 EACH TAB PO SCH ×2 (14:46→21:30)
[2020-01-26] MEDS: SENNOSIDES-DOCUSATE SODIUM 1 EACH TAB PO SCH (06:28)
[2020-01-26 07:37] VITALS: BP 115/80; PULSE 81; TEMP 98.5
== END 2020-01-26 14:45 | disposition home or self-care (01) | DRG 807 ==
LOC: 4FBP 05:59
PROVIDERS: ADMIT Obstetrics & Gynecology; ATTEND Obstetrics & Gynecology
PROC: 3E0R3BZ Introduction of Anesthetic Agent into Spinal Canal, Percutaneous Approach (ICD-10-PCS; principal; 2020-01-24)
PROC: 00HU33Z Insertion of Infusion Device into Spinal Canal, Percutaneous Approach (ICD-10-PCS; principal; 2020-01-24)
PROC: 10E0XZZ Delivery of Products of Conception, External Approach (ICD-10-PCS; principal; 2020-01-24)
PROC: 0HQ9XZZ Repair Perineum Skin, External Approach (ICD-10-PCS; principal; 2020-01-24)
DX: O69.81X0 Labor and delivery complicated by cord around neck, without compression, not applicable or unspecified (principal); Z37.0 Single live birth; O70.0 First degree perineal laceration during delivery; O99.334 Smoking (tobacco) complicating childbirth; F17.210 Nicotine dependence, cigarettes, uncomplicated; Z3A.39 39 weeks gestation of pregnancy; Z90.49 Acquired absence of other specified parts of digestive tract; Z88.5 Allergy status to narcotic agent
CPT/HCPCS: 85025; 86850; 86900; 86901

== ENCOUNTER 2021-02-26 14:49 | Emergency (ER) | payer BC, OTHER ==
[2021-02-26 15:55] VITALS: RESP 18; TEMP 97.4
[2021-02-26] MEDS ORDERED: predniSONE 20 MG TAB PO STA (18:34)
[2021-02-26] MEDS ORDERED: ACETAMINOPHEN TAB 500 MG TAB PO STA (18:34)
--- NOTE | 2021-02-26 18:41 | ED ---
Skin/Abscess/FB HPI - General Chief complaint: Skin/Abscess/Foreign Body Stated complaint: Bug bite Time Seen by Provider: 02/26/21 17:56 Source: patient Mode of arrival: ambulatory Limitations: no limitations - History of Present Illness Initial comments: This 25-year-old female presents complaining of some left hand pain, swelling, and erythema. This started yesterday. She feels as though she was bit by an insect. She apparently has had similar presentations in the past and relates that she is very susceptible to swelling after an insect bite. She complains of mild pain. She denies any actual fever. She is left-handed. No other complaints or modifying factors. - Related Data Previous Rx's Medication Instructions Recorded Ibuprofen [Motrin] 600 mg PO Q6HR PRN #30 tab 01/25/20 Sulfamethox-Tmp 800-160Mg [Bactrim 1 tab PO Q12HR #20 tab 02/26/21 DS 800-160 mg] predniSONE [Deltasone] 20 mg PO BID #6 tab 02/26/21 Allergies Allergy/AdvReac Type Severity Reaction Status Date / Time codeine Allergy Unknown Verified 02/26/21 15:52 Childhood Review of Systems ROS Statement: Those systems with pertinent positive or pertinent negative responses have been documented in the HPI. ROS Other: All systems not noted in ROS Statement are negative. Past Medical History Past Medical History: No Reported History History of Any Multi-Drug Resistant Organisms: None Reported Past Surgical History: Appendectomy Past Anesthesia/Blood Transfusion Reactions: No Reported Reaction Past Psychological History: No Psychological Hx Reported Smoking Status: Current every day smoker Past Alcohol Use History: Rare Past Drug Use History: None Reported - Past Family History Father Additional Family Medical History / Comment(s): kidney disease General Exam Limitations: no limitations Extremities exam: Present: full ROM Psychiatric exam: Present: normal affect, normal mood Skin exam: Present: other (There is some moderate erythema and slight swelling noted to the dorsal aspect of the left hand between the third and fourth digits just proximal to the MCP joint. No fluctuance identified.) Course Vital Signs 02/26/21 15:53 Temperature 97.4 F L Pulse Rate 84 Respiratory 18 Rate Blood Pressure 141/87 O2 Sat by Pulse 100 Oximetry Medical Decision Making - Medical Decision Making The patient was seen and examined. It appears as though she does have a likely insect bite with either a localized ALLERGIC reaction versus a cellulitis. No identifiable abscess noted currently. It is felt as though she benefit from steroids as well as antibiotics. Return parameters are discussed. Disposition Clinical Impression: Insect bite, Cellulitis Disposition: HOME SELF-CARE Condition: Good Instructions (If sedation given, give patient instructions): Insect Bite or Sting (ED), Cellulitis (ED) Prescriptions: Sulfamethox-Tmp 800-160Mg [Bactrim DS 800-160 mg] 1 tab PO Q12HR #20 tab predniSONE [Deltasone] 20 mg PO BID #6 tab Is patient prescribed a controlled substance at d/c from ED?: No Referrals: None,Stated [Primary Care Provider] - 1-2 days Time of Disposition: 18:39
[2021-02-26 19:00] VITALS: BP 121/80; PULSE 80
== END 2021-02-26 19:00 | disposition home or self-care (01) ==
LOC: EC 14:49
DX: L03.114 Cellulitis of left upper limb (principal); F17.200 Nicotine dependence, unspecified, uncomplicated; Z90.49 Acquired absence of other specified parts of digestive tract; W57.XXXA Bitten or stung by nonvenomous insect and other nonvenomous arthropods, initial encounter
CPT/HCPCS: 99283; J7512

== ENCOUNTER 2023-06-24 23:09 | Emergency (ER) | payer OTHER ==
[2023-06-24 23:14] VITALS: BP 143/86; RESP 18; TEMP 99.1
[2023-06-24] MEDS ORDERED: AMOXIC-POT CLAV 875-125MG 1 EACH TAB PO STA (23:28)
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
[2023-06-24 23:48] VITALS: PULSE 99
== END 2023-06-24 23:53 | disposition home or self-care (01) ==
LOC: EC 23:09
DX: S61.253A Open bite of left middle finger without damage to nail, initial encounter (principal); F17.290 Nicotine dependence, other tobacco product, uncomplicated; Z88.5 Allergy status to narcotic agent; W50.3XXA Accidental bite by another person, initial encounter
CPT/HCPCS: 99283

== ENCOUNTER 2024-05-13 12:18 | Emergency (ER) | payer OTHER ==
--- NOTE | 2024-05-13 13:26 | XR ---
EXAMINATION TYPE: XR forearm RT DATE OF EXAM: 05/13/2024 1:02 PM CLINICAL INDICATION:Female, 29 years old with history of pain; [facility] COMPARISON: None TECHNIQUE: XR forearm RT; forearm was examined in AP and lateral projections. FINDINGS: No acute osseous pathology, soft tissue swelling or joint dislocations are seen. IMPRESSION: No evidence of acute fracture.
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
[2024-05-13] MEDS: IBUPROFEN 600 MG TAB PO STA (14:37)
[2024-05-13 14:51] VITALS: BP 108/67; PULSE 72; RESP 18; TEMP 98.1
== END 2024-05-13 14:51 | disposition home or self-care (01) ==
LOC: EC 12:18
DX: S60.811A Abrasion of right wrist, initial encounter (principal); F17.290 Nicotine dependence, other tobacco product, uncomplicated; Z88.5 Allergy status to narcotic agent; V89.2XXA Person injured in unspecified motor-vehicle accident, traffic, initial encounter; Y92.411 Interstate highway as the place of occurrence of the external cause
CPT/HCPCS: 70450; 72125; 99284